=== PATIENT | male | born 1960 | race Caucasian/White ===

== ENCOUNTER 2021-03-11 17:03 | Emergency (ER) | payer BC, OTHER ==
[~2021-03-11] VITALS: Ht 177.8 cm; Wt 83.9 kg
[~2021-03-11 17:03] MED LIST: HYDR25TA4 PO; METO100T14 PO
[2021-03-11] MEDS ORDERED: HYDR8TAB18 PO (17:12)
[2021-03-11 17:15] VITALS: BP 136/66
[2021-03-11] MEDS ORDERED: GELATIN SPONGE,ABSORBABLE 1 SPONGE SPONGE TP ONE (17:20)
--- NOTE | 2021-03-11 17:40 | NUR ---
Patient discharged to home in stable condition. Written and verbal after care instructions given. Patient verbalizes understanding of instruction.
--- NOTE | 2021-03-11 17:40 | NUR ---
GELFOAM AND BULKY DRESSING APPLIED
== END 2021-03-11 17:41 | disposition home or self-care (01) ==
LOC: ER 17:07
DX: Z48.01 Encounter for change or removal of surgical wound dressing (principal); I10 Essential (primary) hypertension; Z79.899 Other long term (current) drug therapy
CPT/HCPCS: 99281; A6253